=== PATIENT | female | born 1965 | race Caucasian/White ===

== ENCOUNTER 2025-02-09 11:14 | Emergency (ER) | payer BC ==
[2025-02-09] MEDS ORDERED: Orphenadrine Citrate 60 MG/2 ML VIAL ONE (12:17)
[2025-02-09] MEDS ORDERED: HYDROcodone/Acetaminophen 5/325 mg Tablet ONE ×2 (15:19→15:22)
== END 2025-02-09 15:44 | disposition home or self-care (01) ==
LOC: NAV ERS 11:14
DX: M54.42 Lumbago with sciatica, left side (principal)
CPT/HCPCS: 96372; 99283; J2270; J2360; J2919